=== PATIENT | male | born 1990 | race Caucasian/White ===

== ENCOUNTER 2017-12-28 20:47 | Emergency (ER) | payer SELFPAY ==
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
[2017-12-28] MEDS ORDERED: IBUPROFEN 200 MG TABLET PO ONE (21:18)
[2017-12-28] MEDS ORDERED: IBUPROFEN 400 MG TABLET PO ONE (21:26)
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
== END 2017-12-28 22:50 | disposition home or self-care (01) ==
LOC: ER 20:47
DX: S00.83XA Contusion of other part of head, initial encounter (principal); S16.1XXA Strain of muscle, fascia and tendon at neck level, initial encounter; V53.6XXA Passenger in pick-up truck or van injured in collision with car, pick-up truck or van in traffic accident, initial encounter; S00.93XA Contusion of unspecified part of head, initial encounter; Y93.I9 Activity, other involving external motion; Y92.9 Unspecified place or not applicable
CPT/HCPCS: 70450; 72125; 99283